=== PATIENT | female | born 1985 | race Caucasian/White ===

== ENCOUNTER → 2024-03-06 14:21 | Outpatient (REF) | payer OTHER, SELFPAY | LOC: HWRAD 14:21 | PROVIDERS: ATTENDING PHYSICIAN Nurse Practitioner Adult Health | DX: K42.9 Umbilical hernia without obstruction or gangrene (principal) | CPT/HCPCS: 76705 ==

== ENCOUNTER 2024-05-01 06:26 | Day surgery (SDC) | payer OTHER, SELFPAY ==
[2024-05-01 06:12] VITALS: BMI 25.4
[2024-05-01 06:23] VITALS: BP 110/70
[2024-05-01 06:26] VITALS: BMI 25.4
[2024-05-01] MEDS: TYLENOL 1000 MG PO (06:30)
[2024-05-01] MEDS: NORMOSOL-R/PLASMALYTE-A 1000 IV (06:40)
--- NOTE | 2024-05-01 07:07 | W.SUR.PREOP ---
Pre-Operative Surgical Note
-
I have examined this patient prior to the performance of the scheduled procedure.
The patient's condition is unchanged from the time of the current History and
Physical and the patient is able to undergo the scheduled procedure.
--- NOTE | 2024-05-01 07:10 | HP.FOC2 ---
Focused History & Physical
Chief Complaint
HPI:
Chief Complaint:
Epigastric hernia
HPI / Indication for Planned Procedure:
This is a 39-year-old female who presents with a symptomatic epigastric hernia. Will plan for open repair.
Relevant Past Medical History: Negative
Relevant Social History: Negative
Relevant Family History: Negative
Relevant Past Surgical History: Negative
Review of Systems
Review of Pertinent Systems: All Systems Negative
Medication
See Medication form for detailed medications: Yes
Medication List (including Herbals & OTC):
No Meds [No Current Medications] 04/24/24
Medications Reviewed: Yes
Allergies and Reactions
Patient has Allergies: Yes
Noted Allergies and Reactions:
Allergy/AdvReac Type Severity Reaction Status Date / Time
No Known Allergies Allergy Verified 05/01/24 06:29
Pertinent Physical Exam
All Other Systems: Negative
Head/Neck: Normal
Diagnosis / Assessment
This is a 39-year-old female who presents with a symptomatic epigastric hernia. Will plan for open repair.
Plan / Procedure
This is a 39-year-old female who presents with a symptomatic epigastric hernia. Will plan for open repair.
Anesthesia/Sedation to be done by Anesthesia Provider: Yes
[2024-05-01 07:50] VITALS: BP 105/59
[2024-05-01 08:00] VITALS: BP 103/66
[2024-05-01 08:06] VITALS: BP 106/63
[2024-05-01 08:20] VITALS: BP 109/66
[2024-05-01 08:40] VITALS: BP 117/69
--- NOTE | 2024-05-06 13:05 | W.IMMPOSTOP ---
Surgical Immed Post Op Note
-
Primary Surgeon: Taran Stroud MD
Assisting Surgeon: None
Pre-op Diagnosis: Epigastric hernia
Post-op Diagnosis: Same
Procedure Performed: Open primary epigastric hernia repair
Anesthesia Type: MAC
Specimen / Cultures: None
Estimated Blood Loss: 1 cc
Complications: None
Operative Findings: Subcentimeter epigastric hernia containing preperitoneal fat which was resected and then closed with a [id number] 0 PDS suture.
--- NOTE | 2024-05-06 13:06 | OR.RPT ---
Operative Report
Operative Report
Patient Name: Deidre San
: 1985
Date of Operation: 05/01/2024
Preoperative Diagnosis: Epigastric hernia
Postoperative Diagnosis: Same
Procedure(s):
Open primary epigastric hernia repair
Surgeon(s):
Dr. Stroud
Tooth Cutter(s):
GALDINO Keenan
Anesthesia: MAC
Estimated Blood Loss: 1 cc
Urine Output: None
Drains/Lines/Implants: None
Specimens: None
Indication for surgery:
The patient has a symptomatic epigastric hernia. After review of their therapeutic options, they elected to pursue open repair.
Operative Findings: Subcentimeter epigastric hernia containing preperitoneal fat which was resected and then closed with a jepagw-od-kknpv 0 PDS suture.
Details of the operation:
After successful induction of anesthesia, the patient was prepped and draped in the supine position. A team timeout was performed confirming administration of DVT prophylaxis, IV antibiotics and SCDs. The skin was anesthestized with 0.25% Marcaine
and an infraumbilical incision was made and dissection carried down to the fascia. The hernia sac was then encircled and carefully dissected off of the surrounding fascia. The hernia sac contained preperitoneal fat which was ligated at the level
of the fascia using a Vicryl tie and then resected. The defect was identified and measured 0.4 cm. As such, we elected to not place any mesh and closed the defect with a bghyhd-qi-[id number] 0 PDS suture. The wound was then closed in layers with 3-0
Vicryl sutures followed by Dermabond. The patient returned to the Recovery Room in stable condition. Sponge and instrument counts were correct. No specimens sent to Pathology.
I was the attending physician and performed the procedure with assistance from the TAR WORKER above. I was present for all portions of the case, excluding skin closure.
Taran Stroud MD
== END 2024-05-01 08:45 | disposition home or self-care (01) ==
LOC: SDS 06:26
PROVIDERS: ATTENDING PHYSICIAN Surgery
DX: K43.9 Ventral hernia without obstruction or gangrene (principal)
CPT/HCPCS: 49591